=== PATIENT | female | born 1945 | race Caucasian/White ===

== ENCOUNTER → 2020-05-01 11:00 | Outpatient (BNVA) | payer MEDICARE, SELFPAY | PROVIDERS: Family Provider Family Medicine; PCP Nurse Practitioner Family; Visit Provider Nurse Practitioner Family | DX: E03.9 Hypothyroidism, unspecified (principal); I10 Essential (primary) hypertension; E78.5 Hyperlipidemia, unspecified | CPT/HCPCS: 80053; 80061; 84443; 85025 ==

== ENCOUNTER 2020-09-16 20:30 | Emergency (ER) | payer MEDICARE, SELFPAY ==
[2020-09-16 20:44] VITALS: BP 134/72; PULSE 104; RESP 14; TEMP 37.4; O2SAT 93; BMI 31.8
--- NOTE | 2020-09-16 21:08 | W.ED.COVID ---
HPI - COVID General: Chief Complaint: COVID symptoms Stated Complaint: FEVER, VIOLENT VOMITING, H/A Time Seen by Provider: 09/16/20 21:08 Source: patient Mode of arrival: ambulatory Limitations: no limitations Triage information: Has fever, cough or shortness of breath. No known COVID + exposure last 14 days History of Present Illness: HPI Narrative: Patient comes in today with complaints of nausea and vomiting till she started having dry heaves. Patient reports 3 episodes of significant vomiting. Patient reports some mid epigastric abdominal pain. Patient has a history of cholecystectomy, coronary artery disease, hypothyroidism, and asthma. Patient denies any chest pain or shortness of breath. Patient appears mildly unwell. Patient was concerned about COVID-19. Patient had recently been treated for a urinary tract infection. COVID 19 common symptoms: positive nausea and vomiting COVID Results: SARS-CoV-2 Antigen (Rapid) Negative (Negative) 09/16/20 21:21 09/16/20 Review of Systems General: Reports: 10 or more systems reviewed and unremarkable except in HPI and below GI: Reports: abdominal pain, nausea and vomiting [facility] PFSH: Medical History (Updated 09/17/20 @ 00:31 by CANDACE Morales) ASHD (arteriosclerotic heart disease) COPD (chronic obstructive pulmonary disease) Family history of cholecystectomy Hypothyroid Surgical History S/P hysterectomy S/P tonsillectomy Social History Smoking and tobacco status: never smoked Second hand smoke exposure: No Alcohol intake: never Lives independently: Yes Marital status: / Current occupational status: retired History of recent travel: No Current gender identity: Female Physical Exam Const: COMMON NORMALS: no acute distress and patient oriented x3 GENERAL APPEARANCE: cooperative HENMT: COMMON NORMALS: normocephalic and Normal external nose present HEAD & SCALP: normal to inspection and normocephalic NOSE: Normal external nose present MOUTH: Normal oral and palatal mucosa present THROAT: posterior oropharynx normal Eye: GENERAL EYE: appearance normal, both eyes and all related structures Neck/C-Spine: COMMON NORMALS: full ROM Lymph: LYMPHATIC: no lymphadenopathy noted Chest: COMMONS NORMALS: normal inspection of the chest Resp: COMMON NORMALS: normal respiratory effort EFFORT & INSPECTION: Yes able to speak in complete sentences Cardio: COMMON NORMALS: regular rate and regular rhythm RATE: regular rate RHYTHM: regular rhythm GI: COMMON NORMALS: non-tender : COMMON NORMALS: Yes no CVA tenderness BLADDER/KIDNEY EXAM: Yes no CVA tenderness Back/Pelvis: COMMON NORMALS: no CVA tenderness and thoracic and lumbar spine normal to inspection Extremity: COMMON NORMALS: normal to inspection Neuro: COMMON NORMALS: patient oriented x3 and moves all extremities Psych: COMMON NORMALS: mental status grossly normal and cooperative Skin: COMMON NORMALS: no rashes or lesions noted GENERAL SKIN EXAM: no rashes or lesions noted Course Vital Signs: Vital signs: Vital Signs Temperature 99.4 F 09/16/20 20:44 Pulse Rate 104 H 09/16/20 20:44 Respiratory Rate 14 09/16/20 20:44 Blood Pressure 134/72 09/16/20 20:44 Pulse Oximetry 96 09/16/20 21:21 MDM - COVID MDM Narrative Medical decision making narrative: Patient comes in for concerns of Covid exposure. Patient states that today she had 3 episodes of emesis. Patient denies any chest pain or significant abdominal pain. Patient did report some abdominal pain 3 days ago. Exam notes no abdominal tenderness with palpation. Bowel sounds were active. Skin was warm and dry. Respirations were even and lungs were clear to auscultation. Differential diagnosis includes but not limited to dehydration, gastroenteritis, bowel obstruction, COVID-19 infection. COVID-19 test was negative. Laboratory values noted a mild decrease in her sodium at 130, creatinine was slightly up to 1.1, AST is ALTs and bilirubin were slightly elevated. This warranted patient having a CT scan to evaluate the liver for signs of bile duct obstruction. CT scan noted no significant abnormalities. Patient presently is on Bactrim which in review of the literature may suggest some elevation in liver enzymes. Another suspicion may be that patient had a small common bile duct stone that resolved. Patient was given 1 L of IV fluids and some Zofran with good results for discomfort. Patient was able to hold down oral liquids. Patient had no pain. Vital signs were normal. I reviewed abnormalities with patient with recommendations for follow-up. Patient reported understanding and agreed to plan. Lab Data Result diagrams: 09/16/20 22:10 10/31/20 22:10 Labs: Lab Results 09/16/20 09/16/20 09/16/20 Range/Units 21:21 22:10 22:10 WBC 9.5 (4.0-10.0) 10^3/uL RBC 3.96 L (4.1-5.3) 10^6/uL Hgb 12.1 (11.5-15.3) g/dL Hct 36.7 L (37.0-47.0) % MCV 92.7 (81-99) fL MCH 30.6 (28.0-34.0) pg MCHC 33.0 (30.0-36.0) g/dL RDW 13.3 (12.1-15.1) % Plt Count 225 (130-400) 10^3/cmm MPV 11.6 H (7.4-10.4) fL Neut % (Auto) 82.8 % Lymph % (Auto) 8.2 % [place] % (Auto) 7.5 % Eos % (Auto) 0.6 % Baso % (Auto) 0.4 % Neut # (Auto) 7.85 H (1.8-7.7) 10^3/uL Lymph # (Auto) 0.8 (0.8-4.8) 10^3/uL [place] # (Auto) 0.7 (0.2-0.9) 10^3/uL Eos # (Auto) 0.1 (0.0-0.8) 10^3/uL Baso # (Auto) 0.0 (0.0-0.1) 10^3/uL Nucleated RBC % (auto) 0 % Nucleated RBCs # 0.0 /100WBC Sodium 130 L (136-145) mmol/L Potassium 3.9 (3.5-5.1) mmol/L Chloride 94 L (98-107) mmol/L Carbon Dioxide 24 (22-29) mmol/L Anion Gap 15.9 (5-19) BUN 23 (8-23) mg/dL Creatinine 1.1 H (0.5-0.9) mg/dL GFR Calculation Not Reportable Glucose 133 H (65-115) mg/dL Calculated Osmolality 276 L (285-295) mOsm/kg Lactic Acid (0.5-2.2) mmol/L Calcium 9.9 (8.5-10.5) mg/dL Total Bilirubin 2.3 H (0.15-1.2) mg/dL AST 176 H (0-32) U/L ALT 168 H (0-33) U/L Alkaline Phosphatase 290 H (35-105) IU/L Total Protein 7.7 (6.6-8.7) g/dL Albumin 4.2 (3.5-5.2) g/dL Globulin 3.5 (1.3-4.6) g/dL Lipase (13-60) U/L SARS-CoV-2 Ag (Rapid) Negative (Negative) 09/16/20 09/16/20 Range/Units 22:10 22:30 WBC (4.0-10.0) 10^3/uL RBC (4.1-5.3) 10^6/uL Hgb (11.5-15.3) g/dL Hct (37.0-47.0) % MCV (81-99) fL MCH (28.0-34.0) pg MCHC (30.0-36.0) g/dL RDW (12.1-15.1) % Plt Count (130-400) 10^3/cmm MPV (7.4-10.4) fL Neut % (Auto) % Lymph % (Auto) % [place] % (Auto) % Eos % (Auto) % Baso % (Auto) % Neut # (Auto) (1.8-7.7) 10^3/uL Lymph # (Auto) (0.8-4.8) 10^3/uL [place] # (Auto) (0.2-0.9) 10^3/uL Eos # (Auto) (0.0-0.8) 10^3/uL Baso # (Auto) (0.0-0.1) 10^3/uL Nucleated RBC % (auto) % Nucleated RBCs # /100WBC Sodium (136-145) mmol/L Potassium (3.5-5.1) mmol/L Chloride (98-107) mmol/L Carbon Dioxide (22-29) mmol/L Anion Gap (5-19) BUN (8-23) mg/dL Creatinine (0.5-0.9) mg/dL GFR Calculation Glucose (65-115) mg/dL Calculated Osmolality (285-295) mOsm/kg Lactic Acid 0.9 (0.5-2.2) mmol/L Calcium (8.5-10.5) mg/dL Total Bilirubin (0.15-1.2) mg/dL AST (0-32) U/L ALT (0-33) U/L Alkaline Phosphatase (35-105) IU/L Total Protein (6.6-8.7) g/dL Albumin (3.5-5.2) g/dL Globulin (1.3-4.6) g/dL Lipase 15 (13-60) U/L SARS-CoV-2 Ag (Rapid) (Negative) COVID Results: SARS-CoV-2 Antigen (Rapid) Negative (Negative) 09/16/20 21:21 09/16/20 Discharge Plan Discharge Patient Disposition: Home Clinical Impression: Nausea & vomiting Qualifiers: Vomiting type: unspecified Vomiting Intractability: non-intractable Qualified Code(s): R11.2 - Nausea with vomiting, unspecified Condition: Stable Prescriptions: New ondansetron 4 mg tablet,disintegrating 4 mg PO Q8H PRN (Reason: nausea and vomiting) 3 Days Qty: 6 RF: 0 No Action cholecalciferol (vitamin D3) 50 mcg (2,000 unit) capsule 50 mcg PO DAILY RF: 0 isosorbide dinitrate 30 mg tablet 30 mg PO BID RF: 0 aspirin [Adult Aspirin Regimen] 81 mg tablet,delayed release (DR/EC) 81 mg PO DAILY RF: 0 hydrochlorothiazide 12.5 mg tablet 12.5 mg PO DAILY RF: 0 ezetimibe [Zetia] 10 mg tablet 10 mg PO DAILY RF: 0 metoprolol tartrate 25 mg tablet 12.5 mg PO BID RF: 0 clopidogrel [Plavix] 75 mg tablet 75 mg PO DAILY RF: 0 sulfamethoxazole-trimethoprim [Bactrim DS] 800-160 mg tablet 1 tab PO BID 7 Days Qty: 14 RF: 0 lisinopril 10 mg tablet 10 mg PO BID Qty: 180 RF: 0 nitroglycerin 0.4 mg tablet, sublingual 0.4 mg SUBLINGUAL Q5M PRN (Reason: chest pain) Qty: 30 RF: 0 albuterol sulfate [ProAir HFA] 90 mcg/actuation HFA aerosol inhaler 1 inh INHALATION QID PRN (Reason: shortness of breath or wheezing) Qty: 18 RF: 0 levothyroxine [Euthyrox] 88 mcg tablet See Rx Instructions .ROUTE .COMPLEX Qty: 90 RF: 1 pantoprazole 40 mg tablet,delayed release (DR/EC) 40 mg PO DAILY Qty: 90 RF: 1 rosuvastatin [Crestor] 10 mg tablet 5 mg PO DAILY Qty: 45 RF: 3 Discharge Orders: Discharge Order (Routine); Ordered 09/17/20 Ordered By: David Dimas Referrals: Hafsa Aldana FNP [Primary Care Provider] - Discharge Diet: Usual diet Discharge Activity: Increase activity as tolerated Patient Instructions: Gastroenteritis (ED) Activity Restrictions/Additional Instructions: Drink plenty of fluids. Use medication as directed. Follow-up with primary care in 3 days. Return to the emergency department for fever, worsening symptoms, or blood in vomit or stool. 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
--- NOTE | 2020-09-16 21:10 | XRR_ITS ---
PROCEDURE INFORMATION: Exam: XR Chest, 1 View Exam date and time: 09/16/2020 9:13 PM Age: 75 years old Clinical indication: Cough and fever TECHNIQUE: Imaging protocol: XR of the chest Views: 1 view. COMPARISON: CR Chest 1 [place] [id number] 06/20/2018 10:09 PM FINDINGS: Lungs: Strandy opacities are present in the left lung base most probably representing atelectasis although pneumonia cannot be excluded as well. There are few increased strandy opacities present in the right lung base as well. Pleural space: Unremarkable. No pleural effusion. No pneumothorax. Heart/Mediastinum: Unremarkable. No cardiomegaly. Bones/joints: Unremarkable. XR/XR chest 1V portable [id number] IMPRESSION: Strandy opacity seen in the lung bases bilaterally could represent atelectasis although bilateral basilar pneumonia cannot be excluded.
[2020-09-16 21:21] VITALS: O2SAT 96
[2020-09-16 21:54] LABS: SARS Covid-2 Antigen Negative (Negative)
[2020-09-16 22:38] LABS: Basophils % 0.4 %; Eosinophils # 0.1 10^3/uL (0.0-0.8); Eosinophils % 0.6 %; Hematocrit 36.7 % (37.0-47.0); Hemoglobin 12.1 g/dL (11.5-15.3); Lymphocytes # 0.8 10^3/uL (0.8-4.8); Lymphocytes % 8.2 %; Mean Corpuscular Hemoglobin 30.6 pg (28.0-34.0); Mean Corpuscular Volume 92.7 fL (81-99); Mean Platelet Volume 11.6 fL (7.4-10.4); Monocytes # 0.7 10^3/uL (0.2-0.9); Monocytes % 7.5 %; Neutrophils # 7.85 10^3/uL (1.8-7.7); Neutrophils % 82.8 %; Nucleated Red Blood Cells % 0 %; Platelet Count 225 10^3/cmm (130-400); Red Blood Count 3.96 10^6/uL (4.1-5.3); Red Cell Distribution Width 13.3 % (12.1-15.1); White Blood Count 9.5 10^3/uL (4.0-10.0)
[2020-09-16 22:48] LABS: Alanine Aminotransferase 168 U/L (0-33); Albumin Level 4.2 g/dL (3.5-5.2); Alkaline Phosphatase 290 IU/L (35-105); Anion Gap 15.9 (5-19); Aspartate Amino Transferase 176 U/L (0-32); Blood Urea Nitrogen 23 mg/dL (8-23); Calcium 9.9 mg/dL (8.5-10.5); Carbon Dioxide 24 mmol/L (22-29); Chloride 94 mmol/L (98-107); Creatinine Clr Calc Pharmacy 45.4033; Globulin 3.5 g/dL (1.3-4.6); Glucose 133 mg/dL (65-115); Osmolality Calculated 276 mOsm/kg (285-295); Potassium 3.9 mmol/L (3.5-5.1); Sodium 130 mmol/L (136-145); Total Bilirubin 2.3 mg/dL (0.15-1.2); Total Protein 7.7 g/dL (6.6-8.7)
--- NOTE | 2020-09-16 22:59 | CTR_ITS ---
PROCEDURE INFORMATION: Exam: CT Abdomen And Pelvis With Contrast Exam date and time: 09/16/2020 11:33 PM Age: 75 years old Clinical indication: Abdominal pain; Generalized; Prior surgery; Surgery date: 6+ months; Surgery type: Hyst, gb; Patient HX: C/O abd pain w n/v fever and elev lfts; Additional info: Abd pain, n/v, elevated lft's and bilirubin TECHNIQUE: Imaging protocol: Computed tomography of the abdomen and pelvis with intravenous contrast. Radiation optimization: All CT scans at this facility use at least one of these dose optimization techniques: automated exposure control; mA and/or kV adjustment per patient size (includes targeted exams where dose is matched to clinical indication); or iterative reconstruction. Contrast material: VISI 320; Contrast volume: 95 ml; Contrast route: INTRAVENOUS (IV); COMPARISON: CR Hip 2-3v RIGHT wwo Pelv* [id number] 09/22/2019 5:00 PM RADIATION DOSE METRICS: Total DLP (mGy-cm): 914.16 FINDINGS: Liver: Normal. No mass. Gallbladder and bile ducts: Status post cholecystectomy. Common bile duct is prominent measuring 9.5 mm in its midportion tapering to normal caliber within the pancreas. Pancreas: Normal. No ductal dilation. Spleen: Normal. No splenomegaly. Adrenal glands: Normal. No mass. Kidneys and ureters: There is a 2.3 mm nonobstructing left renal calculus present. Stomach and bowel: There is a small hiatal hernia containing a small portion of the proximal stomach. Appendix: The appendix is not seen in today's examination. There are no inflammatory changes seen to suggest appendicitis. Intraperitoneal space: Unremarkable. No free air. No significant fluid collection. Vasculature: See Lymph nodes finding. Lymph nodes: There are mildly prominent lymph nodes seen in the marek hepatis measuring up to 10.1 mm transverse dimension. Calcifications are seen within the thoracic and abdominal aorta, iliac arteries and femoral arteries bilaterally, renal arteries and branches of the celiac trunk. Urinary bladder: Unremarkable as visualized. Reproductive: Status post hysterectomy. Bones/joints: Status post bipolar right hip replacement. Soft tissues: There is an umbilical hernia present containing mesenteric fat. CT/CT abdomen pelvis w con* [id number] IMPRESSION: 1. There are multiple mildly prominent lymph nodes seen in the marek hepatis. 2. Small hiatal hernia containing a small portion of the proximal stomach 3. Small umbilical hernia containing mesenteric fat 4. Nonobstructing 2.3 mm left renal calculus Radiation Dose CTDIVOL = (mGy): DLP = 914.16 (mGy-cm)
[2020-09-16] MEDS: sodium chloride 0.9% 1,000 ML 999 ML IV (23:05)
[2020-09-16 23:37] LABS: Lactic Sepsis W/Reflex 0.9 mmol/L (0.5-2.2)
[2020-09-16 23:58] LABS: Lipase 15 U/L (13-60)
[2020-09-16] MEDS: iodixanol 320 mg/mL 100mL Btl IV (23:58)
[2020-09-17 00:49] VITALS: BP 131/75; PULSE 99; RESP 16; O2SAT 95
== END 2020-09-17 00:51 | disposition home or self-care (01) ==
PROVIDERS: Emergency Provider Nurse Practitioner Family; PCP Nurse Practitioner Family
DX: R11.2 Nausea with vomiting, unspecified (principal); Z79.82 Long term (current) use of aspirin; Z79.02 Long term (current) use of antithrombotics/antiplatelets; J44.9 Chronic obstructive pulmonary disease, unspecified
CPT/HCPCS: 12345; 36415; 71045; 74177; 80053; 83605; 83690; 85025; 87426; 96360; 99283; J7030; Q9967

== ENCOUNTER → 2020-09-19 13:50 | Outpatient (BNVA) | payer MEDICARE, SELFPAY | PROVIDERS: PCP Nurse Practitioner Family; Visit Provider Family Medicine | DX: N30.00 Acute cystitis without hematuria (principal); R74.8 Abnormal levels of other serum enzymes | CPT/HCPCS: 80053; 81003; 87077; 87086; 87184 ==

== ENCOUNTER → 2020-11-28 09:28 | Outpatient (BNVA) | payer MEDICARE, SELFPAY | PROVIDERS: PCP Nurse Practitioner Family; Visit Provider Nurse Practitioner Family | DX: I10 Essential (primary) hypertension (principal); E03.9 Hypothyroidism, unspecified | CPT/HCPCS: 80053; 80061; 84443 ==

== ENCOUNTER → 2021-08-15 10:11 | Outpatient (BNVA) | payer MEDICARE, SELFPAY | PROVIDERS: PCP Nurse Practitioner Family; Visit Provider Nurse Practitioner Family | DX: E03.9 Hypothyroidism, unspecified (principal); I10 Essential (primary) hypertension; E55.9 Vitamin D deficiency, unspecified; Z23 Encounter for immunization | CPT/HCPCS: 80053; 80061; 82306; 82607; 84443; 85025 ==

== ENCOUNTER → 2022-02-21 11:34 | Outpatient (BNVA) | payer MEDICARE, SELFPAY | PROVIDERS: PCP Nurse Practitioner Family; Visit Provider Nurse Practitioner Family | DX: E03.9 Hypothyroidism, unspecified (principal); I10 Essential (primary) hypertension; E55.9 Vitamin D deficiency, unspecified; K21.9 Gastro-esophageal reflux disease without esophagitis; Z00.00 Encounter for general adult medical examination without abnormal findings | CPT/HCPCS: 80053; 80061; 82306; 82607; 83735; 84439; 84443; 85025 ==

== ENCOUNTER → 2023-02-05 15:32 | Outpatient (BNVA) | payer MEDICARE, SELFPAY | PROVIDERS: PCP Nurse Practitioner Family; Visit Provider Nurse Practitioner Family | DX: E03.9 Hypothyroidism, unspecified (principal); I25.10 Atherosclerotic heart disease of native coronary artery without angina pectoris; E55.9 Vitamin D deficiency, unspecified | CPT/HCPCS: 80053; 80061; 82306; 84443; 85025 ==

== ENCOUNTER → 2024-03-24 10:45 | Outpatient (BNVA) | payer MEDICARE, SELFPAY | PROVIDERS: PCP Nurse Practitioner Family; Visit Provider Nurse Practitioner Family | DX: E03.9 Hypothyroidism, unspecified (principal); I10 Essential (primary) hypertension; E55.9 Vitamin D deficiency, unspecified; Z78.0 Asymptomatic menopausal state; K21.9 Gastro-esophageal reflux disease without esophagitis | CPT/HCPCS: 80053; 80061; 82306; 82607; 84443; 85025 ==

== ENCOUNTER 2024-05-24 13:04 | Outpatient (CLI) | payer MEDICARE, SELFPAY ==
--- NOTE | 2024-05-24 13:00 | XR_ITS ---
WS: [id number] SCREENING DEXA SCAN [facility] CLINICAL INFORMATION: Z78.0 - Asymptomatic menopausal state COMPARISON: None. FINDINGS: The L1-L4 bone mineral density measures 1.684 g/cm2. This corresponds to a T score score of 4.2 and Z score of 5.5. Left forearm bone mineral density measures 0.910. This corresponds to a T score of 0.4 and Z score of 2.9. Right forearm bone mineral density measures 0.91. This corresponds to a T score 0.3 of and Z score of 2.9. XR/XR DEXA axial skeleton* [id number] IMPRESSION: Normal bone mineralization.
== END 2024-05-24 13:05 | disposition home or self-care (01) ==
LOC: RAD 13:04
PROVIDERS: PCP Nurse Practitioner Family; Visit Provider Nurse Practitioner Family
DX: Z78.0 Asymptomatic menopausal state (principal)
CPT/HCPCS: 77080

== ENCOUNTER → 2024-11-24 11:23 | Outpatient (BNVA) | payer MEDICARE, SELFPAY | PROVIDERS: PCP Nurse Practitioner Family; Visit Provider Nurse Practitioner Family | DX: E03.9 Hypothyroidism, unspecified (principal); I10 Essential (primary) hypertension; E55.9 Vitamin D deficiency, unspecified | CPT/HCPCS: 80053; 80061; 82306; 82607; 84443; 85025 ==

== ENCOUNTER 2025-05-05 13:34 | Outpatient (CLI) | payer MEDICARE, SELFPAY ==
--- NOTE | 2025-05-05 14:00 | MM_ITS ---
WS: [id number] BILATERAL 3D TOMOSYNTHESIS DIGITAL DIAGNOSTIC MAMMOGRAPHY WITH CAD CLINICAL INFORMATION: N63.10 - Unspecified lump in the right breast, unspecifie... HISTORY: RIGHT breast lumps COMPARISON: 2013 TECHNIQUE: Bilateral CC, MLO, and ML views. FINDINGS: Scattered fibroglandular densities bilaterally. Vascular calcifications. A few incidental intramammary lymph nodes. Palpable marker RIGHT breast with a few underlying small ovoid nodules or lymph nodes. Ultrasound is pending. LEFT breast is otherwise unremarkable ULTRASOUND BREAST RIGHT TECHNIQUE: Ultrasound right breast focused area of concern. CLINICAL INFORMATION: N63.10 - Unspecified lump in the right breast, unspecifie... FINDINGS: Multiple simple and slightly complex cyst are visualized. The largest measuring 7 mm at the 1 o'clock position 2 cm from the nipple. Findings have a benign appearance. Recommend return to annual screening mammography MM/MM diag BI tomosynthesis [id number] IMPRESSION: DENSITY: There are scattered areas of fibroglandular density. BI-RADS: 2 - Benign. FOLLOW UP: 1 Year Follow-up Recommend return to annual screening mammography.
--- NOTE | 2025-05-05 14:30 | US_ITS ---
WS: [id number] BILATERAL 3D TOMOSYNTHESIS DIGITAL DIAGNOSTIC MAMMOGRAPHY WITH CAD CLINICAL INFORMATION: N63.10 - Unspecified lump in the right breast, unspecifie... HISTORY: RIGHT breast lumps COMPARISON: 2013 TECHNIQUE: Bilateral CC, MLO, and ML views. FINDINGS: Scattered fibroglandular densities bilaterally. Vascular calcifications. A few incidental intramammary lymph nodes. Palpable marker RIGHT breast with a few underlying small ovoid nodules or lymph nodes. Ultrasound is pending. LEFT breast is otherwise unremarkable ULTRASOUND BREAST RIGHT TECHNIQUE: Ultrasound right breast focused area of concern. CLINICAL INFORMATION: N63.10 - Unspecified lump in the right breast, unspecifie... FINDINGS: Multiple simple and slightly complex cyst are visualized. The largest measuring 7 mm at the 1 o'clock position 2 cm from the nipple. Findings have a benign appearance. Recommend return to annual screening mammography US/US breast RT limited* [id number] IMPRESSION: DENSITY: There are scattered areas of fibroglandular density. BI-RADS: 2 - Benign. FOLLOW UP: 1 Year Follow-up Recommend return to annual screening mammography.
== END 2025-05-05 13:35 | disposition home or self-care (01) ==
PROVIDERS: PCP Nurse Practitioner Family; Visit Provider Nurse Practitioner Family
DX: N60.11 Diffuse cystic mastopathy of right breast (principal)
CPT/HCPCS: 76642; 77062; G0279

== ENCOUNTER → 2025-09-20 14:23 | Outpatient (BNVA) | payer MEDICARE, SELFPAY | PROVIDERS: PCP Nurse Practitioner Family; Visit Provider Nurse Practitioner Family | DX: R39.89 Other symptoms and signs involving the genitourinary system (principal) | CPT/HCPCS: 81003; 87086 ==

== ENCOUNTER → 2025-09-26 11:09 | Outpatient (BNVA) | payer MEDICARE, SELFPAY | PROVIDERS: PCP Nurse Practitioner Family; Visit Provider Nurse Practitioner Family | DX: I10 Essential (primary) hypertension (principal); E55.9 Vitamin D deficiency, unspecified; E03.9 Hypothyroidism, unspecified | CPT/HCPCS: 80053; 80061; 82306; 84443; 85025 ==